=== PATIENT | male | born 2000 | race Caucasian/White ===

== ENCOUNTER 2021-05-12 14:05 | Inpatient (IN) | payer MEDICAID ==
[~2021-05-12] VITALS: Ht 170.2 cm; Wt 70.3 kg
[2021-05-12 14:42] LABS: BASOPHILS % 0.1 % (0.0-2.0); EOSINOPHILS % 0.1 % (0.0-5.0); HEMOGLOBIN. 13.8 g/dL (14.0-18.0); LYMPHOCYTES % 14.8 % (20.0-50.0); MEAN CORPUSCULAR HEMOGLOBIN 27.5 pg (28.0-32.0); MEAN CORPUSCULAR VOLUME 81.5 fL (80.0-94.0); MEAN PLATELET VOLUME 7.8 fl (7.4-10.4); MONOCYTES % 10.9 % (2.0-8.0); NEUTROPHILS % 74.1 % (40.0-76.0); PLATELET 289 x1000/uL (130-400); RED BLOOD CELL COUNT 5.03 mill/uL (4.7-6.1); RED CELL DISTRIBUTION WIDTH 13.9 % (11.6-14.6)
[2021-05-12] MEDS ORDERED: OXYMETAZOLINE HCL NASAL SPRAY 15ML BOTHNSTRLS SCH (14:45)
[2021-05-12] MEDS ORDERED: TRANEXAMIC ACID 1,000 MG/10 ML TP ONE (14:45)
[2021-05-12 14:56] LABS: CHLORIDE 101 mEq/L (98-107)
[2021-05-12] MEDS ORDERED: LIDOCAINE HCL/EPINEPHRINE 1%-EPI 1:100,000 20 ML VIAL INFIL ONE (15:00)
[2021-05-12] MEDS ORDERED: LIDOCAINE HCL/EPINEPHRINE 1%-EPI 1:100,000 10 ML VIAL INFIL NR (15:15)
[2021-05-12] MEDS ORDERED: SODIUM CHLORIDE 0.9% 1,000 ML IV ONE (20:30)
[2021-05-12 21:56] LABS: HEMATOCRIT 40.1 % (42.0-52.0); HEMOGLOBIN 13.4 g/dL (14.0-18.0); MEAN CORPUSCULAR HEMOGLOBIN 27.8 pg (28.0-32.0); MEAN CORPUSCULAR VOLUME 83.1 fL (80.0-94.0); PLATELET 275 x1000/uL (130-400); RED BLOOD CELL COUNT 4.82 mill/uL (4.7-6.1)
[2021-05-13 08:00] VITALS: BP 124/75
[2021-05-13] MEDS ORDERED: DEXT 5%/0.45% NACL 1000ML 1,000 ML IV SCH (08:30)
[2021-05-13] MEDS ORDERED: MORPHINE SULFATE 2 MG/ML CPJ (NOT FOR IM USE) IV PRN (08:30)
[2021-05-13] MEDS ORDERED: ONDANSETRON HCL 4MG/2ML INJ IV PRN (08:30)
[2021-05-13 09:30] VITALS: BP 124/75
[2021-05-13] MEDS ORDERED: IBUP-2030 PO (09:35)
[2021-05-13] MEDS ORDERED: CEPH250C2 MT (09:36)
[2021-05-13 10:45] LABS: HEMATOCRIT 35.2 % (42.0-52.0)
[2021-05-13 12:00] VITALS: BP 120/68
[2021-05-13 13:38] VITALS: BP 120/68
== END 2021-05-13 14:45 | disposition home or self-care (01) | DRG 810 ==
LOC: ER 14:05 → MICUSO 23:28 → 6EST 05-13 08:40
PROVIDERS: ADMIT Internal Medicine; ATTEND Internal Medicine
DX: J95.830 Postprocedural hemorrhage of a respiratory system organ or structure following a respiratory system procedure (principal); R65.10 Systemic inflammatory response syndrome (SIRS) of non-infectious origin without acute organ dysfunction; E88.09 Other disorders of plasma-protein metabolism, not elsewhere classified; D64.9 Anemia, unspecified; F17.200 Nicotine dependence, unspecified, uncomplicated; Y83.6 Removal of other organ (partial) (total) as the cause of abnormal reaction of the patient, or of later complication, without mention of misadventure at the time of the procedure; Y92.89 Other specified places as the place of occurrence of the external cause; Z20.822 Contact with and (suspected) exposure to COVID-19
CPT/HCPCS: 36415; 80053; 85014; 85018; 85025; 85027; 86850; 86900; 87426; 99291; J3490; J7030